=== PATIENT | female | born 1985 | race Caucasian/White ===

== ENCOUNTER 2019-12-31 10:00 | Emergency (ER) | payer BC ==
[2019-12-31] MEDS: Ketorolac 60 MG/2 ML SDV IM ONE (10:25)
[2019-12-31] MEDS: Tetracaine HCl/PF 0.5% 4 ML Bottle EYEBOTH ONE (10:25)
[2019-12-31] MEDS: Tetracaine HCl/PF 0.5% 4 ML Bottle ONE (10:26)
[2019-12-31] MEDS: Erythromycin Base 0.5% Ophth Oint 1 GM Tube EYEBOTH ONE (10:26)
--- NOTE | 2019-12-31 10:27 | EDM.PDOC ---
ED HPI GENERAL MEDICAL PROBLEM - General Chief Complaint: Headache Stated Complaint: RT EYE IRRITATION Time Seen by Provider: 12/31/19 10:03 Source of Information: Reports: Patient History Limitations: Reports: No Limitations - History of Present Illness INITIAL COMMENTS - FREE TEXT/NARRATIVE: HISTORY AND PHYSICAL: History of present illness: Patient is a 34-year-old female who presents to the emergency room with complaints of right eye irritation. She states this is been ongoing and progressively getting worse over the past 3 days. She believes that the eye irritation has been causing a headache as she has been scratching and rubbing at her eyes vigorously. Describes the headache as frontal in location and pounding in character. Denies any light sensitivity noise sensitivity or nausea. She does not wear contact lenses or glasses. Denies any injury or trauma. Patient denies any fever, chills, headache, change in vision, syncope or near syncope. Denies any chest pain, back pain, shortness of breath or cough. Denies any GI or symptoms. Review of systems: As per history of present illness and below otherwise all systems reviewed and negative. Past medical history: As per history of present illness and as reviewed below otherwise noncontributory. Surgical history: As per history of present illness and as reviewed below otherwise noncontributory. Social history: See social history for further information Family history: As per history of present illness and as reviewed below otherwise noncontributory. Physical exam: General: Well-developed and well-nourished 34-year-old -[place] female. Alert and oriented. Nontoxic-appearing and in no acute distress. HEENT: Atraumatic, normocephalic, pupils equal and reactive bilaterally, negative for conjunctival pallor or scleral icterus, scleral injection on the right eye, no pain with ocular movement, no ocular impingement, SEE NOTE, mucous membranes moist, TMs normal bilaterally, throat clear, neck supple, nontender, trachea midline. No drooling or trismus noted. No meningeal signs. No hot potato voice noted. Lungs: Clear to auscultation, breath sounds equal bilaterally, chest nontender. Heart: S1S2, regular rate and rhythm without overt murmur Abdomen: Soft, nondistended, nontender. Skin: Intact, warm, dry. No lesions or rashes noted. Extremities: Atraumatic, moves all extremities per self without difficulty or deficits, negative for cords or calf pain. Neurovascular unremarkable. Neuro: Awake, alert, oriented. Cranial nerves II through XII unremarkable. Cerebellum unremarkable. Motor and sensory unremarkable throughout. Exam nonfocal. Notes: Visual acuity is WNL. Fluorescein eye exam shows a corneal abrasion at the 12 o 'clock position on the sclera. Tonopen read on right 15, left 16. She states she has not seen a primary care provider in approximately 2 years. She states she does have a history of high blood pressure but has never been treated with medications for this. She states she has otherwise been healthy and has had no complaints or concerns. We did discuss doing basic lab work which she declines at this time. We will give her some Toradol and monitor her blood pressure. Patient states that her headache feels better. I did discuss my concern with her having elevated blood pressure. She states she had it checked not too long ago and it was "normal". She believes that her blood pressure has been running normal. She agrees to follow-up with a primary care provider next week to have this reevaluated as we discussed the risks of leaving hypertension unmanaged. Supportive care measures were reviewed and discussed. Voices understanding and is agreeable to plan of care. Denies any further questions or concerns at this time. Diagnostics: Declines Therapeutics: Erythromycin ointment, Toradol Prescription: Erythromycin Opth Impression: Hypertension Corneal Abrasion Headache Plan: 1. Use the erythromycin ointment 6 x daily over the next 7 days. If the eye irriation doesn't improve please follow up with ophthalmology as we discussed. 2. Can continue alternating Tylenol and Ibuprofen for headache. 3. Your blood pressure was high today; please follow up next week with your primary care provider for re-evaluation and management of this. 4. Return to the ED as needed and as discussed. Definitive disposition and diagnosis as appropriate pending reevaluation and review of above. headache Pain Score (Numeric/FACES): 9 - Related Data Allergies Allergy/AdvReac Type Severity Reaction Status Date / Time No Known Allergies Allergy Verified 12/31/19 10:04 Home Meds: Home Meds Erythromycin Base [Erythromycin 0.5% Ophth Oint] 1 applic OP Q4H 7 Days #1 tube 12/31/19 [Rx] Past Medical History HEENT History: Reports: None Cardiovascular History: Reports: None Respiratory History: Reports: None Gastrointestinal History: Reports: None Genitourinary History: Reports: None SPOOL CARRIER History: Reports: None Musculoskeletal History: Reports: None Neurological History: Reports: None Psychiatric History: Reports: None Endocrine/Metabolic History: Reports: None Hematologic History: Reports: None Immunologic History: Reports: None Oncologic (Cancer) History: Reports: None Dermatologic History: Reports: None - Infectious Disease History Infectious Disease History: Reports: None - Past Surgical History Head Surgeries/Procedures: Reports: None HEENT Surgical History: Reports: None Cardiovascular Surgical History: Reports: None Respiratory Surgical History: Reports: None GI Surgical History: Reports: None Female Surgical History: Reports: None Endocrine Surgical History: Reports: None Neurological Surgical History: Reports: None Musculoskeletal Surgical History: Reports: None Oncologic Surgical History: Reports: None Dermatological Surgical History: Reports: None Social & Family History - Family History Family Medical History: Noncontributory - Tobacco Use Smoking Status *Q: Never Smoker Second Hand Smoke Exposure: No - Caffeine Use Caffeine Use: Reports: Coffee - Recreational Drug Use Recreational Drug Use: No ED ROS GENERAL - Review of Systems Review Of Systems: Comprehensive ROS is negative, except as noted in HPI. - Physical Exam Exam: See Below (See dictation) Course - Vital Signs Last Recorded V/S: Last Vital Signs Temp 96.4 F L 12/31/19 10:05 Pulse 79 12/31/19 10:05 Resp 18 12/31/19 10:05 BP 174/118 H 12/31/19 10:05 Pulse Ox 99 12/31/19 10:05 - Orders/Labs/Meds Meds: Medications Discontinued Medications Generic Name Dose Route Start Last Admin Trade Name Ravi PRN Reason Stop Dose Admin Erythromycin 1 gm 12/31/19 10:15 12/31/19 10:26 Erythromycin 0.5% Ophth Oint EYEBOTH 12/31/19 10:16 1 inch ONETIME ONE Administration Ketorolac Tromethamine 60 mg 12/31/19 10:14 12/31/19 10:25 Toradol IM 12/31/19 10:15 60 mg ONETIME ONE Administration Tetracaine HCl 1 ml 12/31/19 10:15 12/31/19 10:25 Tetracaine 0.5% Steri-Unit Elda EYEBOTH 12/31/19 10:16 1 drop ASDIRECTED ONE Administration Tetracaine HCl Confirm 12/31/19 10:16 12/31/19 10:26 Tetracaine 0.5% Steri-Unit Elda Administered 12/31/19 10:17 Not Given Dose 4 ml .ROUTE .STK-MED ONE Departure - Departure Time of Disposition: 10:52 Disposition: Home, Self-Care 01 Clinical Impression: Headache Qualifiers: Headache type: unspecified Headache chronicity pattern: acute headache Intractability: not intractable Qualified Code(s): R51 - Headache Corneal abrasion Qualifiers: Encounter type: initial encounter Laterality: right Qualified Code(s): S05.01XA - Injury of conjunctiva and corneal abrasion without foreign body, right eye, initial encounter Hypertension Qualifiers: Hypertension type: unspecified Qualified Code(s): I10 - Essential (primary) hypertension - Discharge Information Prescriptions: Erythromycin Base [Erythromycin 0.5% Ophth Oint] 1 applic OP Q4H 7 Days #1 tube Instructions: Corneal Abrasion, [id number], Hypertension, Adult, [id number] Referrals: PCP,None [Primary Care Provider] - Forms: ED Department Discharge Additional Instructions: The following information is given to patients seen in the emergency department who are being discharged to home. This information is to outline your options for follow-up care. We provide all patients seen in our emergency department with a follow-up referral. The need for follow-up, as well as the timing and circumstances, are variable depending upon the specifics of your emergency department visit. If you don't have a primary care physician on staff, we will provide you with a referral. We always advise you to contact your personal physician following an emergency department visit to inform them of the circumstance of the visit and for follow-up with them and/or the need for any referrals to a consulting specialist. The emergency department will also refer you to a specialist when appropriate. This referral assures that you have the opportunity for follow-up care with a specialist. All of these measure are taken in an effort to provide you with optimal care, which includes your follow-up. Under all circumstances we always encourage you to contact your private physician who remains a resource for coordinating your care. When calling for follow-up care, please make the office aware that this follow-up is from your recent emergency room visit. If for any reason you are refused follow-up, please contact the [facility] Emergency Department at and asked to speak to the emergency department charge nurse. [facility] [address] [place] [address] [facility] [address] [place] [id number] 1. Use the erythromycin ointment 6 x daily over the next 7 days. If the eye irriation doesn't improve please follow up with ophthalmology as we discussed. 2. Can continue alternating Tylenol and Ibuprofen for headache. 3. Your blood pressure was high today; please follow up next week with your primary care provider for re-evaluation and management of this. THIS IS VERY IMPORTANT. 4. Return to the ED as needed and as discussed. Sepsis Event Note - Evaluation Sepsis Screening Result: No Definite Risk - Focused Exam Vital Signs: Vital Signs Temp Pulse Resp BP Pulse Ox 12/31/19 10:05 96.4 F L 79 18 174/118 H 99 Date Exam was Performed: 12/31/19 Time Exam was Performed: 10:54
== END 2019-12-31 11:10 | disposition home or self-care (01) ==
LOC: MW.ED 10:00
DX: S05.01XA Injury of conjunctiva and corneal abrasion without foreign body, right eye, initial encounter (principal); I10 Essential (primary) hypertension; X58.XXXA Exposure to other specified factors, initial encounter
CPT/HCPCS: 96372; 99284; A9270; J1885; 99283

== ENCOUNTER 2023-12-08 16:36 | Emergency (ER) | payer BC ==
[2023-12-08] MEDS ORDERED: Magnesium Sulfate/Water 2 GM in Premix Bag 1 BAG IV STA (18:12)
[2023-12-08] MEDS: Metoclopramide 10 MG/2 ML SDV IVPUSH STA (18:23)
[2023-12-08] MEDS: Magnesium Sulfate/Water 2 GM in Premix Bag 1 BAG IV ONE (18:23)
[2023-12-08] MEDS: Sodium Chloride 0.9% 1,000 ML IV STA ×2 (18:23→20:50)
[2023-12-08] MEDS: diphenhydrAMINE 50 MG/ML SDV IVPUSH STA (18:24)
[2023-12-08] MEDS: Sodium Chloride 0.9% 2.5 ML Syringe FLUSH PRN (18:24)
[2023-12-08] MEDS: Sodium Chloride 0.9% 10 ML Syringe FLUSH PRN (18:25)
[2023-12-08 18:52] LABS: CORONAVIRUS COVID-19 NAA NEGATIVE (NEGATIVE); INFLUENZA A NAA NEGATIVE (NEGATIVE); INFLUENZA B NAA NEGATIVE (NEGATIVE)
[2023-12-08 18:57] LABS: BASOPHILS ABSOLUTE AUTO 0.01 K/uL (0.00-0.20); BASOPHILS PERCENT AUTO 0.1 % (0.0-1.0); EOSINOPHILS ABSOLUTE AUTO 0.06 K/uL (0.00-0.45); EOSINOPHILS PERCENT AUTO 0.6 % (0.0-6.0); HEMATOCRIT 39.3 % (37.0-47.0); HEMOGLOBIN 12.8 g/dL (12.0-16.0); IMMATURE GRAN ABSOLUTE AUTO 0.03 K/uL (0.00-0.05); IMMATURE GRAN PERCENT AUTO 0.3 % (0.0-0.4); LYMPHOCYTES ABSOLUTE AUTO 1.85 K/uL (1.00-4.80); MEAN CORPUSCULAR HEMOGLOBIN 26.6 pg (28.0-32.0); MEAN CORPUSCULAR HGB CONC 32.6 g/dL (32.0-36.0); MEAN CORPUSCULAR VOLUME 81.5 fL (83.0-99.0); MEAN PLATELET VOLUME 9.9 fL (9.4-12.3); MONOCYTES ABSOLUTE AUTO 1.12 K/uL (0.00-0.80); MONOCYTES PERCENT AUTO 11.5 % (0.0-8.0); NEUTROPHILS ABSOLUTE AUTO 6.69 K/uL (1.80-7.70); NEUTROPHILS PERCENT AUTO 68.5 % (41.0-71.0); PLATELET COUNT,PLT 384 K/uL (150-400); RED BLOOD CELL COUNT 4.82 M/uL (4.10-5.30); WHITE BLOOD CELL COUNT,WBC 9.76 K/uL (3.9-11.3)
[2023-12-08] MEDS: diphenhydrAMINE 25 MG Cap PO STA (19:07)
[2023-12-08] MEDS: Acetaminophen 500 MG Tab PO STA (19:07)
[2023-12-08] MEDS: Metoclopramide 5 MG Tab PO STA (19:07)
[2023-12-08 19:24] LABS: A/G RATIO 0.7 (0.9-1.6); ALBUMIN 3.1 g/dL (3.4-5.0); BILIRUBIN TOTAL 0.7 mg/dL (0.2-1.0); CALCIUM 9.6 mg/dL (8.5-10.1); CARBON DIOXIDE,CO2 26.8 mmol/L (21.0-32.0); CREATININE 0.6 mg/dL (0.6-1.0); EST CRCL DRUG DOSING (CG) 116.68 mL/min; POTASSIUM,K 4.1 mmol/L (3.5-5.1); PROTEIN TOTAL,TP 7.6 g/dL (6.4-8.2)
[2023-12-08] MEDS: Promethazine 25 MG/ML SDV IM STA (20:05)
[2023-12-08] MEDS: Magnesium Sulfate/Water 2 GM in Premix Bag 1 BAG IV STA (20:51)
[2023-12-08 21:04] LABS: BILIRUBIN,URINE NEGATIVE (NEGATIVE); COLOR,URINE YELLOW; GLUCOSE,URINE NEGATIVE (NEGATIVE); KETONES,URINE >=80 mg/dL (NEGATIVE); LEUKOCYTE ESTERASE,URINE NEGATIVE (NEGATIVE); NITRITE,URINE POSITIVE (NEGATIVE); OCCULT BLOOD,URINE NEGATIVE (NEGATIVE); PROTEIN,URINE NEGATIVE (NEGATIVE)
[2023-12-08 21:14] LABS: APPEARANCE,URINE HAZY; BACTERIA,URINE 3+ (NEGATIVE); EPITHELIAL CELLS,URINE MODERATE (NONE-FEW); MUCUS,URINE MODERATE (NONE-MOD); RBC,URINE 0-1 (0-2/HPF); WBC,URINE 0-1 (0-5/HPF)
[2023-12-08 21:31] LABS: INR 1.12 (0.86-1.11); PTT,PARTIAL THROMBOPLSTIN TIME 26.3 SEC (23.9-30.7)
[2023-12-08] MEDS: Enoxaparin 100 MG/1 ML Syringe SUBCUT STA (22:19)
[2023-12-08] MEDS: Aspirin 81 MG Tab.Chew PO STA (22:19)
[2023-12-08] MEDS: Metoprolol Tartrate 5 MG/5 ML SDV IVPUSH STA (22:20)
[2023-12-08] MEDS: hydrALAZINE 20 MG/ML SDV IVPUSH ONE (23:05)
[2023-12-09] MEDS: hydrALAZINE 20 MG/ML SDV IVPUSH ONE (00:03)
== END 2023-12-09 00:33 ==
LOC: MW.ED 16:36
DX: I21.4 Non-ST elevation (NSTEMI) myocardial infarction (principal); R51.9 Headache, unspecified; I10 Essential (primary) hypertension
CPT/HCPCS: 0240U; 36415; 70450; 80053; 81001; 84484; 84703; 85025; 85610; 85730; 87086; 93005; 96365; 96372; 96375; 96376; 99285; A9270; J0360; J1650; J2550; J3475; J3490; J7030; 93010; J1200; J2765

== ENCOUNTER 2024-10-22 13:30 | Emergency (ER) | payer BC ==
[2024-10-22] MEDS: Acetaminophen 500 MG Tab PO ONE (16:22)
[2024-10-22] MEDS: Ibuprofen 600 MG Tab PO ONE (16:22)
== END 2024-10-22 17:01 | disposition home or self-care (01) ==
LOC: MW.ED 13:30
DX: J10.1 Influenza due to other identified influenza virus with other respiratory manifestations (principal); Z75.8 Other problems related to medical facilities and other health care; Z79.899 Other long term (current) drug therapy
CPT/HCPCS: 87428; 99284; A9270